=== PATIENT | male | born 1985 | race Caucasian/White ===

== ENCOUNTER 2017-02-26 17:48 | Inpatient (IN) | payer OTHER ==
[~2017-02-26] VITALS: Ht 188 cm; Wt 74.8 kg
--- NOTE | ~2017-02-26 | PA ---
Unit #: [id number] #: [id number] Patient: URBANO MADDEN [id number] [facility] [address] [place] [address] [id number] MR#: [id number] NAME: URBANO MADDEN ROOM: P256 Age: 31 Sex: M Admission Date: 02/27/2017 : 1985 Date of Assessment: 02/27/2017 Attending Physician: Chad Brunner M.D. Admitting Physician: Chad Brunner M.D. Primary Care Physician: Primary Care Physician No PSYCHIATRIC ASSESSMENT DATE OF SERVICE 02/27/2017. IDENTIFYING DATA Mr. Madden is a 31-year-old white male, who is a resident of [place], [place], and was self-referred to the hospital on a voluntary basis and was initially assessed at the [facility]. CHIEF COMPLAINT "Suicidal ideations and various plans." HISTORY OF PRESENT ILLNESS Mr. Madden is a 31-year-old white male, who presented to [facility] and was evaluated and stated that he has been having suicidal ideation and that he has several plans to kill himself and "cut my throat or other plans, and I want to lay down and ." He reports that he has attempted in the past and reports increasing depression following breakup with his girlfriend a month ago and reports that he has smoked methamphetamine for 30 days straight with his girlfriend who is reporting to have stopped methamphetamine use a month ago and does endorse increasing depression, anxiety, irritability, feelings of hopelessness and helplessness, and suicidal ideations with intent or plan and as such, recommendation for inpatient level of care for safety and stabilization was made and the patient was transferred to us. SUBSTANCE ABUSE HISTORY The patient reports history of methamphetamine and cannabis abuse, and has been using both of them on a regular basis. PAST PSYCHIATRIC HISTORY The patient has had history of multiple inpatient psychiatric hospitalizations including being at [facility], at [facility], and [facility]. Review of the medical records indicate that he has been diagnosed and treated for mood disorder, though currently he is not active in any treatment program, is not seeing a psychiatrist, and is not taking any psychotropic medications. PAST MEDICAL HISTORY No acute or chronic medical illnesses. ALLERGIES Penicillin and Ceclor. Unit #: [id number] #: [id number] Patient: URBANO MADDEN PERSONAL AND SOCIAL HISTORY A 31-year-old white male, who reports that he is single, unemployed, and lives with his mother and father and has fairly decent social support system. MENTAL STATUS EXAMINATION Young white male who was casually dressed with fair personal hygiene, appears to be in no acute distress or discomfort. He was awake and alert on interaction with intact orientation to time, place, and person. His mood was anxious and depressed with a congruent affect. His speech was slow and restricted in content. His thought processes were disorganized with some looseness of associations and suicidal ideations. His insight and judgment remain significantly impaired. DIAGNOSTIC IMPRESSION Psychiatric: Major depressive disorder, recurrent, moderate, without psychotic features; methamphetamine dependence, moderate; cannabis dependence, moderate. Medical: None. Stressors: Moderate psychosocial stressors. TREATMENT PLAN 1. The patient has presented with history of mood disorder and substance abuse and has been decompensating and will need inpatient hospitalization for safety and stabilization. We will start him back on his home medications. We will adjust the medications and monitor response. 2. Supportive therapy was provided to the patient. 3. Safe, structured, and nourishing environment will be reported. ESTIMATED LENGTH OF STAY 5 to 7 days. ABILITY TO HELP SELF Limited. WILLINGNESS TO HELP SELF The patient appears to be willing to help self. STRENGTHS 1. Communicative. 2. Cooperative. PROBLEMS 1. Chronic dysphoric symptoms. 2. Poor social support system. DISCHARGE CRITERIA This will be contingent upon the patient's ability to show resolution of his depression and anxiety and his ability to stay safe to himself, particularly after discharge from the hospital. Dictated by... Tiffanie Boateng/fernando TD: 02/27/2017 08:03 Unit #: [id number] #: [id number] Patient: URBANO MADDEN JOB #: [id number] PSYCHIATRIC ASSESSMENT Page 1 of 1 X Chad Brunner MD X PSYCHIATRIC ASSESSMENT
--- NOTE | ~2017-02-26 | PN ---
Unit #: [id number] #: [id number] Patient: URBANO MADDEN [id number] [facility] [address] [place] [address] [id number] MR#: [id number] NAME: URBANO MADDEN ROOM: P254 Age: 31 Sex: M Admission Date: 02/27/2017 : 1985 Attending Physician: Chad Brunner M.D. Admitting Physician: Chad Brunner M.D. Primary Care Physician: Primary Care Physician Glenda VILLASEÑOR PROGRESS NOTES DATE March 01, 2017 DISCUSSION Mr. Madden is a 31-year-old white male, who was seen today and chart was reviewed and the case was discussed with the staff. He has been doing fairly well with agitation, irritability, and has been calm and cooperative and compliant with the treatment recommendations. He has been showing improvement in his mood and functioning. MENTAL STATUS EXAMINATION Young white male, who was casually dressed with fair personal hygiene and appears to be in no acute distress or discomfort. He was awake and alert on interaction with intact orientation. His mood is anxious with a congruent affect. He denies any suicidal or homicidal ideations. His insight and judgment remain slightly impaired. TREATMENT PLAN 1. We will continue him on his current medications and treatment protocol, and will monitor his response to the medications, and make further adjustments as needed. 2. We will continue to followup. Dictated by... Tiffanie Boateng/anna TD: 03/03/2017 04:32 JOB #: [id number] Unit #: [id number] #: [id number] Patient: URBANO MADDEN [facility] PROGRESS NOTES Page 1 of 1 X Chad Brunner MD X PROGRESS NOTE
--- NOTE | ~2017-02-26 | DS ---
Unit #: [id number] #: [id number] Patient: URBANO GRANADOS [id number] [facility] [address] [place] [address] [id number] MR#: [id number] NAME: URBANO GRANADOS ROOM: [facility] Age: 31 Sex: M Admission Date: 02/27/2017 : 1985 Discharge Date: 03/02/2017 Attending Physician: Chad Brunner M.D. Primary Care Physician: Primary Care Physician No DISCHARGE SUMMARY REASON FOR ADMISSION Suicidal ideation. DIAGNOSTIC STUDIES LABORATORY RESULTS: Unremarkable except urine drug screen positive for marijuana. HOSPITAL COURSE The patient was admitted to the inpatient unit on 02/27/2017 and discharged on 03/02/2017. The patient was treated on the inpatient unit with group therapy, individual therapy, and medication management. The patient was responsive to treatment. The patient also attended chemical dependency group. The patient was subsequently discharged with a plan to follow up in outpatient clinic. DISCHARGE MEDICATION Wellbutrin XL 150 mg in the morning for depression. DISCHARGE DIAGNOSES Psychiatric: Major depressive disorder, recurrent, severe, F33.2; amphetamine use disorder, severe, F15.20; and cannabis abuse disorder, moderate, F12.20. Secondary diagnosis: Deferred. Medical diagnosis: None. Stressors: Psychosocial stressors. DISCHARGE INSTRUCTIONS The patient to follow up in outpatient clinic as per social media executive. CONDITION ON DISCHARGE The patient was pleasant and cooperative. Denied any psychotic symptom or any suicidal ideation. PROGNOSIS Guarded. DIET AND ACTIVITY As tolerated. Unit #: [id number] #: [id number] Patient: URBANO GRANADOS Dictated by... Tiffanie Ambriz/fernando TD: 03/04/2017 14:32 JOB #: [id number] DISCHARGE SUMMARY Page 1 of 1 X Héctor Trinh MD X DISCHARGE SUMMARY
--- NOTE | ~2017-02-26 | HP ---
Unit #: [id number] #: [id number] Patient: URBANO GRANADOS [id number] [facility] [address] [place] [address] [id number] MR#: [id number] NAME: URBANO GRANADOS ROOM: P256 Age: 31 Sex: M Admission Date: 02/27/2017 : 1985 Attending Physician: Chad Brunner M.D. Admitting Physician: Chad Brunner M.D. Primary Care Physician: Primary Care Physician No HISTORY AND PHYSICAL HISTORY OF PRESENT ILLNESS Urbano is a 31 year old admitted to [address] [place] [address] with depression and verbalizing wanting to hurt himself. PAST MEDICAL HISTORY Nothing significant. PAST SURGICAL HISTORY Appendectomy. ALLERGIES Ceclor (hives). SOCIAL HISTORY Smokes 1-1/2 packs per day. Denies alcohol and illicit drug use. FAMILY HISTORY Medically noncontributory. REVIEW OF SYSTEMS He does not answer all questions appropriately. There were no reports of nausea, vomiting or diarrhea. He has had no cough or increased temperature. CURRENT MEDICATIONS 1. Wellbutrin XL 150 mg q.a.m. 2. Nicotine patch 14 mg daily. 3. Milk of Magnesia p.r.n. 4. Maalox p.r.n. 5. Tylenol p.r.n. PHYSICAL EXAMINATION GENERAL: Alert, thin, in no apparent distress. VITAL SIGNS: Blood pressure 110/74, heart rate 70, respirations 16, temperature 98.6. WEIGHT: 165. HEIGHT: 6 feet 2 inches. SKIN: Warm and dry without rash or lesion. HEENT: Normocephalic. TMs not viewed. Oral and nasal passages clear. Conjunctivae clear. PERRLA. EOMs intact. NECK: Supple without lymphadenopathy or thyromegaly. HEART: Regular rate and rhythm without murmur. LUNGS: Clear. ABDOMEN: Soft, nontender. Unit #: [id number] #: [id number] Patient: URBANO GRANADOS : Not done. EXTREMITIES: No evidence of cyanosis, clubbing or edema. Moves all without focal deficit. NEUROLOGICAL: Grossly within normal limits. Cranial Nerves: II: Visual hawley are intact. III, IV AND : Extraocular movements are intact. Pupils are equal, round and reactive to light. V: Facial sensation is grossly normal. VII: Facial movements and expression are normal. VIII: Auditory acuity grossly intact. IX, X: Uvula is midline. Phonation is normal. XI: Patient shrugs shoulders and turns head normally. XII: Tongue protrudes in the midline. Sensory and Motor Function: Sensory and motor sensation is grossly normal. Motor: moves all extremities well. Coordination: Gait is normal. Deep Tendon Reflexes: Intact. IMPRESSION 1. Psychiatric admission. 2. He is very underweight for his height. RECOMMENDATIONS PSYCHIATRIC: Per psychiatrist. MEDICAL: 1. See no contraindication to participate in facility's activities. 2. Add Ensure with each meal and at bedtime. MEDICAL PROGNOSIS Good. MEDICAL CONDITION Stable. Dictated by... Nicol DonALuisa. for Tiffanie Carrasco/zena TD: 02/27/2017 21:11 JOB #: [id number] HISTORY AND PHYSICAL Page 1 of 1 X Rhea Davis HISTORY AND PHYSICAL
--- NOTE | ~2017-02-26 | PN ---
Unit #: [id number] #: [id number] Patient: URBANO MADDEN [id number] [facility] [address] [place] [address] [id number] MR#: [id number] NAME: URBANO MADDEN ROOM: P254 Age: 31 Sex: M Admission Date: 02/27/2017 : 1985 Attending Physician: Chad Brunner M.D. Admitting Physician: Chad Brunner M.D. Primary Care Physician: Primary Care Physician Glenda VILLASEÑOR PROGRESS NOTES DATE 02/28/2017 DISCUSSION Mr. Madden is a 31-year-old, white male who was seen today and chart was reviewed and case was discussed with the staff. He has been doing fairly well. He has been calm and cooperative and laying in his bed and compliant with treatment recommendations. No agitation or aggression has been reported. He denies any thoughts of wanting to hurt himself. MENTAL STATUS EXAM Young white male who was casually dressed with fair personal hygiene, appears to be in no acute distress or discomfort. He was awake and alert on interaction with intact orientation. His mood was anxious with congruent affect. He denies any suicidal or homicidal ideation. His insight and judgement remains slightly impaired. TREATMENT PLAN 1. We will continue him on his current medications and treatment protocol. We will monitor his response to the medication and make further adjustments as needed. 2. We will continue to follow up. Dictated by... Tiffanie Boateng/crystal TD: 03/02/2017 03:44 JOB #: [id number] Unit #: [id number] #: [id number] Patient: URBANO MADDEN PEAMATTHEW PROGRESS NOTES Page 1 of 1 X Chad Brunner MD X PROGRESS NOTE
[2017-02-27 09:55] LABS: BASOPHIL# 0.1 X10e3 (0-0.3); BASOPHIL% 1.1 % (0-2.5); EOSINOPHIL# 0.4 X10e3 (0-0.7); EOSINOPHIL% 5.5 % (0.0-7.0); HEMATOCRIT 50.7 % (38.0-50.0); HEMOGLOBIN 17.3 gm/dL (13.0-16.0); LYMPHOCYTE# 2.2 X10e3 (1.0-3.5); LYMPHOCYTE% 33.3 % (17.0-45.0); MEAN CELL VOLUME 97.5 FL (83-96); MEAN CORPUSCULAR HEMOGLOBIN 33.3 PG (28-34); MEAN CORPUSCULAR HGB CONC 34.1 g/dL (30-36); MEAN PLATELET VOLUME 8.8 FL (6.5-11.5); MONOCYTE# 0.6 X10e3 (0-1.0); MONOCYTE% 8.9 % (3.0-12.0); NEUTROPHIL# 3.3 X10e3 (1.5-7.1); NEUTROPHIL% 51.2 % (40-75); PLATELET COUNT 202 X10e3 (140-420); RED BLOOD COUNT 5.21 X10e (3.90-5.60); RED CELL DISTRIBUTION WIDTH 14.7 % (11.0-15.5); WHITE BLOOD COUNT 6.5 X10e3 (4.0-10.5)
[2017-02-27 09:57] LABS: URINE APPEARANCE CLEAR; URINE BILIRUBIN NEG (NEG); URINE BLOOD NEG (NEG); URINE COLOR YELLOW; URINE GLUCOSE NEG (NEG); URINE KETONE NEG (NEG); URINE LEUKOCYTE ESTERASE NEG (NEG); URINE NITRATE NEG (NEG); URINE PH 6.5 (5-8); URINE PROTEIN NEG (NEG); URINE SPECIFIC GRAVITY 1.018 (1.003-1.035); URINE UROBILINOGEN 0.2 MG/DL (NEG)
[2017-02-27 09:58] LABS: ALBUMIN SERUM 4.2 g/dL (3.5-5.0); BILIRUBIN,TOTAL 0.2 mg/dL (0.2-2.0); BUN/CREATININE RATIO 18.75; CALCIUM SERUM 9.6 mg/dL (8.4-10.2); CREATININE SERUM 0.8 mg/dL (0.6-1.4); GLOM FILT RATE Estimated 119.9 mL/min (>60); POTASSIUM 4.6 mmol/L (3.5-5.1); PROTEIN TOTAL SERUM 6.6 g/dL (6.0-8.3)
[2017-02-27 09:59] LABS: DIFF IND NO
[2017-02-27 10:07] LABS: AMPHETAMINE NEG (NEG); BARBITURATES NEG (NEG); BENZODIAZEPINES NEG (NEG); COCAINE NEG (NEG); MARIJUANA POS (NEG); OPIATES NEG (NEG); TRICYCLIC ANTIDEPRESSANTS NEG (NEG); U METHADONE NEG (NEG)
== END 2017-03-02 11:10 | disposition home or self-care (01) | DRG 885 ==
LOC: P2L 02-27 01:47
PROVIDERS: Psychiatry & Neurology Psychiatry
DX: F33.1 Major depressive disorder, recurrent, moderate (principal); F15.20 Other stimulant dependence, uncomplicated; R45.851 Suicidal ideations; F12.20 Cannabis dependence, uncomplicated; Z88.0 Allergy status to penicillin; Z88.8 Allergy status to other drugs, medicaments and biological substances; F17.200 Nicotine dependence, unspecified, uncomplicated; R63.6 Underweight; Z68.21 Body mass index [BMI] 21.0-21.9, adult
CPT/HCPCS: 80053; 80307; 81003; 85025